=== PATIENT | male | born 1975 | race Caucasian/White ===

== ENCOUNTER 2018-08-13 11:08 | Emergency (ER) | payer OTHER ==
[2018-08-13] MEDS ORDERED: LIDOCAINE 5% (700 MG) TRANSDERMAL ADH..PATCH TP ONE (11:51)
[2018-08-13] MEDS ORDERED: DEXAMETHASONE SOD PHOS INJ 10 MG/1 ML VIAL IM ONE (11:51)
[2018-08-13] MEDS ORDERED: KETOROLAC TROMETHAMINE 60 MG/2 ML SDV IM ONE (11:51)
--- NOTE | 2018-08-13 11:57 | ER Document Report ---
Addendum entered and electronically signed by MONTY HUNTER PA-C 08/13/18 11:58: Course - Re-evaluation Re-evalutation: 08/13/18 11:58 Correction to course: pt 42 not 22 - Vital Signs Vital signs: Temp Pulse Resp BP Pulse Ox 98.2 F 75 18 124/72 95 08/13/18 11:12 08/13/18 11:12 08/13/18 11:12 08/13/18 11:12 08/13/18 11:12 Original Note: HPI - HPI Time Seen by Provider: 08/13/18 11:40 Pain Level: 5 Notes: Patient is a 42-year-old male with h/o chronic back and knee pain who presents to the ED complaining of acute on chronic pain to the left buttock area after picking up a 30lb item yesterday. Patient states that bending twisting of the trunk make his pain worse. Pain does not radiate down LE's. It will occasionally radiate up the left side of his back superiorly though. He is eating and drinking without any difficulties. He is urinating normally and having normal bowel movements. He has not had any injections or procedures to his lower back. Denies any IV drug abuse. No other concerns or complaints. Pt has ongoing chronic knee pain, unchanged, from normal. Denies any headache, fever, head injury, neck pain, changes in vision/speech/mentation/hearing, URI, sore throat, chest pain, palpitations, syncope, cough, shortness of breath, wheeze, dyspnea, abdominal pain, nausea/vomiting/diarrhea, urinary retention, dysuria, hematuria, loss of control of bowel or bladder, numbness/tingling, saddle anesthesia, muscle paralysis/weakness, or rash. - ROS Systems Reviewed and Negative: Yes All other systems reviewed and negative - CONSTITUTIONAL Constitutional: DENIES: Fever, Chills Past Medical History - Social History Smoking Status: Current Every Day Smoker Frequency of alcohol use: None Drug Abuse: None Family History: Reviewed & Not Pertinent Patient has suicidal ideation: No Patient has homicidal ideation: No Pulmonary Medical History: Denies: Hx Asthma Renal/ Medical History: Denies: Hx Peritoneal Dialysis GI Medical History: Reports: Hx Gastroesophageal Reflux Disease, Hx Hiatal Hernia, Hx Ulcerative Colitis Musculoskeletal Medical History: Reports Hx Musculoskeletal Trauma - from Psychiatric Medical History: Reports: Hx Anxiety, Hx Depression - anxiety, Hx Post Traumatic Stress Disorder - Immunizations Immunizations up to date: No - tetanus Hx Diphtheria, Pertussis, Tetanus Vaccination: Yes Vertical Provider Document - CONSTITUTIONAL Agree With Documented VS: Yes Notes: PHYSICAL EXAMINATION: GENERAL: Well-appearing, well-nourished and in no acute distress. LUNGS: Breath sounds clear to auscultation bilaterally and equal. No wheezes rales or rhonchi. HEART: Regular rate and rhythm without murmurs, rubs, gallops. ABDOMEN: Soft, nontender, nondistended abdomen. No guarding, no rebound. Normal bowel sounds present. No CVA tenderness bilaterally. No pulsatile mass. Rectal tone intact. Musculoskeletal: LE's b/l: LROM to passive/active due to pain. Strength 5+/5. No deficits noted. No bony tenderness of extremities. Back: LROM to passive/active. Strength 5+/5. No vertebral point tenderness, stepoffs, or deformities. No erythema, swelling, or ecchymosis. SLR negative b/l. + mild tenderness to the L-paraspinal mm b/l. Mild spasming. + left SI jt tenderness which correlates with the pain described today. No foot drop Extremities: No cyanosis, clubbing, or edema b/l. Peripheral pulses 2+. Capillary refill less than 2 seconds. NEUROLOGICAL: Normal speech, ambulates with SPC assistance. Normal sensory, motor exams. Reflexes 2+ b/l. PSYCH: Normal mood, normal affect. SKIN: Warm, Dry, normal turgor, no rashes or lesions noted. - INFECTION CONTROL TRAVEL OUTSIDE OF THE [place] IN LAST 30 DAYS: No Course - Re-evaluation Re-evalutation: 08/13/18 11:55 Patient is an afebrile, well-hydrated, 22-year-old male who presents to the ED with acute on chronic low back pain. Vitals are acceptable. PE is otherwise unremarkable for any focal neurological deficits. Patient was given Decadron (steroid request by pt), Toradol, and Lidoderm patch. He has no significant tachycardia, tachypnea, or hypoxia. He is nontoxic-appearing and is tolerating p.o. without difficulties. There are no signs of infection. No other red flag symptoms noted. No other labs or imaging warranted at this time based on H&P. Low suspicion for any meningitis, fracture, expanding/ruptured AAA, cauda equina syndrome, epidural mass lesion/abscess, herniated disc causing severe spinal stenosis, or other systemic infection at this time. Patient is aware that his condition can change from initial presentation and that he needs monitor symptoms closely for any acute changes. I will send him home with a prescription for robaxin and naproxen. Conservative measures otherwise for symptoms. Recheck with your PCM in 3-5 days. Consider consult with orthoped ic/physical therapy. Return to the ED with any worsening/concerning symptoms otherwise as reviewed discharge. Patient is in agreement. - Vital Signs Vital signs: Temp Pulse Resp BP Pulse Ox 98.2 F 75 18 124/72 95 08/13/18 11:12 08/13/18 11:12 08/13/18 11:12 08/13/18 11:12 08/13/18 11:12 Discharge - Discharge Clinical Impression: Sacroiliitis, Acute exacerbation of chronic low back pain Condition: Stable Disposition: HOME, SELF-CARE Additional Instructions: Rest, Ice Tylenol/ibuprofen as needed Light stretches daily Strength exercises as able Moist heat and massage may help F/u with your PCP in 3-5 days for a recheck Consider consult(s) with Orthopedics/physical therapy for ongoing/worsening symptoms Return to the ED with any worsening symptoms and/or development of fever, h eadache, chest pain, palpitations, syncope, shortness of breath, trouble breathing, abdominal pain, n/v/d, blood in stool/urine, loss of control of bowel/bladder, urinary retention, muscle weakness/paralysis, saddle anesthesia, numbness/tingling, or other worsening symptoms that are concerning to you. Prescriptions: Methocarbamol [Robaxin] 500 mg PO TID PRN #12 tablet PRN Reason: Naproxen 500 mg PO BID #14 tablet Forms: Smoking Cessation Education, Return to Work Referrals: [facility] [Primary [facility]] - Follow up as needed [facility] [Provider Group] - Follow up as needed
[2018-08-13 12:14] VITALS: BP 124/79
== END 2018-08-13 12:19 | disposition home or self-care (01) ==
LOC: ER 11:08
DX: M46.1 Sacroiliitis, not elsewhere classified (principal); G89.29 Other chronic pain; M54.5 Low back pain
CPT/HCPCS: 99283; 96372; J1885; J1100